=== PATIENT | male | born 1940 | race Asian ===

== ENCOUNTER 2021-06-01 13:32 | Inpatient (IN) | payer OTHER ==
[2021-06-01 15:30] LABS: BASO % 0.2 % (0-2.0); EOS % 0.6 % (0-4.5); HEMATOCRIT 39.3 % (35.4-49); HEMOGLOBIN 13.2 GM/dL (11.7-16.9); LYMPH % 23.6 % (8-40); MCH 29.5 pg (25.7-33.7); MCHC 33.7 g/dl (32.0-35.9); MEAN CELL VOLUME 87.7 fl (80-96); MEAN PLT VOLUME 8.8 fl (7.5-11.1); MONO % 9.3 % (3.8-10.2); NEUT % 66.3 % (42.8-82.8); PLATELET COUNT 148 10^3/uL (134-434); RBC 4.48 M/mm3 (4.00-5.60); RDW 16.3 % (11.9-15.9); WHITE BLOOD COUNT 6.2 K/mm3 (4.0-10.0)
[2021-06-01 15:45] LABS: INR 1.34 (0.83-1.09); PROTHROMBIN TIME (PATIENT) 15.7 SEC (9.7-13.0)
[2021-06-01 15:48] LABS: ACTIVATED PTT 33.8 SECONDS (25.2-36.5)
[2021-06-01 15:53] LABS: ALBUMIN 2.9 g/dl (3.4-5.0); BLOOD UREA NITROGEN 35.8 mg/dL (7-18); CALCIUM 8.1 mg/dL (8.5-10.1)
[2021-06-01 15:56] LABS: CREATININE 1.8 mg/dL (0.55-1.3)
[2021-06-01 15:58] LABS: BILIRUBIN,TOTAL 0.4 mg/dL (0.2-1); TOT PROT 7.9 g/dl (6.4-8.2)
[2021-06-01] MEDS ORDERED: ACETAMINOPHEN 1000 MG/100 ML VIAL IVPB ONE (16:10)
[2021-06-01] MEDS ORDERED: ACETAMINOPHEN INJECTION 100 ML IVPB ONE (16:18)
[2021-06-01] MEDS ORDERED: SODIUM CHLORIDE 0.9% 500 ML INFUS.BAG IV ONE (16:46)
[2021-06-01] MEDS ORDERED: LIDOCAINE 5% TOPICAL PATCH TP ONE (19:23)
[2021-06-01] MEDS ORDERED: LIDOCAINE 5% TOPICAL PATCH ONE (20:41)
[2021-06-01] MEDS ORDERED: hydrALAZINE HCL 25 MG TABLET (FP) ONE (23:46)
[2021-06-01] MEDS ORDERED: APIXABAN 5 MG TABLET ONE (23:46)
[2021-06-01] MEDS ORDERED: CARVEDILOL 12.5 MG TABLET (FP) ONE (23:46)
[2021-06-01] MEDS ORDERED: ATORVASTATIN CA 40 MG TABLET (FP) ONE (23:46)
[2021-06-01] MEDS: ATORVASTATIN CA 40 MG TABLET (FP) PO SCH (23:53)
[2021-06-01] MEDS: hydrALAZINE HCL 50 MG TABLET (FP) PO SCH (23:53)
[2021-06-01] MEDS: CARVEDILOL 12.5 MG TABLET (FP) PO SCH (23:53)
[2021-06-01] MEDS: APIXABAN 5 MG TABLET PO SCH (23:53)
[2021-06-02 06:12] LABS: BASO % 0.5 % (0-2.0); EOS % 0.9 % (0-4.5); HEMATOCRIT 38.6 % (35.4-49); LYMPH % 24.1 % (8-40); MCH 29.9 pg (25.7-33.7); MCHC 33.6 g/dl (32.0-35.9); MEAN CELL VOLUME 89.2 fl (80-96); MEAN PLT VOLUME 8.9 fl (7.5-11.1); MONO % 10.7 % (3.8-10.2); NEUT % 63.8 % (42.8-82.8); PLATELET COUNT 142 10^3/uL (134-434); RBC 4.33 M/mm3 (4.00-5.60); RDW 16.3 % (11.9-15.9); WHITE BLOOD COUNT 6.7 K/mm3 (4.0-10.0)
[2021-06-02 06:15] LABS: ALBUMIN 2.7 g/dl (3.4-5.0); BLOOD UREA NITROGEN 37.4 mg/dL (7-18); CALCIUM 8.5 mg/dL (8.5-10.1); MAGNESIUM 2.3 mg/dL (1.8-2.4)
[2021-06-02 06:18] LABS: CREATININE 1.7 mg/dL (0.55-1.3)
[2021-06-02 06:20] LABS: BILIRUBIN,TOTAL 0.4 mg/dL (0.2-1); TOT PROT 7.6 g/dl (6.4-8.2)
[2021-06-02] MEDS: INSULIN SLIDING SCALE (NOVOLOG) 1 VIAL SQ SCH ×4 (08:13→22:00)
[2021-06-02] MEDS: LEVOTHYROXINE NA 50 MCG TABLET (FP) PO SCH (08:14)
[2021-06-02] MEDS: APIXABAN 5 MG TABLET PO SCH ×2 (10:29→21:51)
[2021-06-02] MEDS: hydrALAZINE HCL 50 MG TABLET (FP) PO SCH ×2 (10:29→22:00)
[2021-06-02] MEDS: CARVEDILOL 12.5 MG TABLET (FP) PO SCH ×2 (10:29→21:52)
[2021-06-02] MEDS: ISOSORBIDE MONONITRATE 30 MG TAB.SR.24H (FP) PO SCH (10:29)
[2021-06-02] MEDS: ASPIRIN 81 MG CHEWABLE TABLETS PO SCH (10:29)
[2021-06-02] MEDS: ALLOPURINOL 100 MG TABLET (FP) PO SCH (10:29)
[2021-06-02] MEDS: SACUBITRIL/VALSARTAN 24 MG-26 MG TABLET PO SCH ×2 (10:30→21:50)
[2021-06-02] MEDS ORDERED: FLU VACC QS2021-22(6MOS UP)/PF 60 MCG/0.5 ML SYRINGE IM ONE (14:00)
[2021-06-02] MEDS ORDERED: PT OWN MED DRAWER 7, Y5N ONE (19:48)
[2021-06-02] MEDS: ATORVASTATIN CA 40 MG TABLET (FP) PO SCH (21:53)
[2021-06-03] MEDS: LIDOCAINE PATCH REMOVAL MC SCH ×2 (06:23→22:05)
[2021-06-03] MEDS: LEVOTHYROXINE NA 50 MCG TABLET (FP) PO SCH (06:25)
[2021-06-03] MEDS: INSULIN SLIDING SCALE (NOVOLOG) 1 VIAL SQ SCH ×4 (06:41→22:05)
[2021-06-03] MEDS: ALLOPURINOL 100 MG TABLET (FP) PO SCH (09:13)
[2021-06-03] MEDS: APIXABAN 5 MG TABLET PO SCH ×2 (09:13→22:04)
[2021-06-03] MEDS: ASPIRIN 81 MG CHEWABLE TABLETS PO SCH (09:13)
[2021-06-03] MEDS: hydrALAZINE HCL 50 MG TABLET (FP) PO SCH ×2 (09:13→22:04)
[2021-06-03] MEDS: SACUBITRIL/VALSARTAN 24 MG-26 MG TABLET PO SCH ×2 (09:13→22:04)
[2021-06-03] MEDS: CARVEDILOL 12.5 MG TABLET (FP) PO SCH ×2 (09:13→22:04)
[2021-06-03] MEDS: ISOSORBIDE MONONITRATE 30 MG TAB.SR.24H (FP) PO SCH (09:15)
[2021-06-03] MEDS ORDERED: PT OWN MED DRAWER 7, Y5N ONE (22:02)
[2021-06-03] MEDS: ATORVASTATIN CA 40 MG TABLET (FP) PO SCH (22:04)
[2021-06-04] MEDS: INSULIN SLIDING SCALE (NOVOLOG) 1 VIAL SQ SCH ×4 (06:01→21:48)
[2021-06-04] MEDS: LEVOTHYROXINE NA 50 MCG TABLET (FP) PO SCH (06:11)
[2021-06-04 08:32] LABS: BASO % 0.1 % (0-2.0); EOS % 0.6 % (0-4.5); HEMATOCRIT 35.5 % (35.4-49); HEMOGLOBIN 12.3 GM/dL (11.7-16.9); LYMPH % 15.8 % (8-40); MCH 30.1 pg (25.7-33.7); MCHC 34.5 g/dl (32.0-35.9); MEAN CELL VOLUME 87.1 fl (80-96); MONO % 11.9 % (3.8-10.2); NEUT % 71.6 % (42.8-82.8); PLATELET COUNT 117 10^3/uL (134-434); RBC 4.08 M/mm3 (4.00-5.60); RDW 16.3 % (11.9-15.9); WHITE BLOOD COUNT 7.2 K/mm3 (4.0-10.0)
[2021-06-04 08:43] LABS: CALCIUM 8.1 mg/dL (8.5-10.1)
[2021-06-04 08:44] LABS: BLOOD UREA NITROGEN 41.2 mg/dL (7-18)
[2021-06-04 08:45] LABS: ALBUMIN 2.6 g/dl (3.4-5.0)
[2021-06-04 08:47] LABS: CREATININE 1.5 mg/dL (0.55-1.3)
[2021-06-04 08:49] LABS: BILIRUBIN,TOTAL 0.7 mg/dL (0.2-1); TOT PROT 7.4 g/dl (6.4-8.2)
[2021-06-04] MEDS ORDERED: PT OWN MED DRAWER 7, Y5N ONE ×2 (09:39→21:18)
[2021-06-04 09:46] LABS: URINE APPEARANCE CLEAR; URINE COLOR YELLOW
[2021-06-04 09:47] LABS: PH,URINE 5.5 (5.0-8.0); URINE BILIRUBIN NEGATIVE (NEGATIVE); URINE GLUCOSE (UA) >1000 mg/dl (NEGATIVE); URINE KETONE NEGATIVE (NEGATIVE); URINE PROTEIN 2+ (NEGATIVE)
[2021-06-04 09:48] LABS: URINE LEUK ESTERASE NEGATIVE (NEGATIVE); URINE NITRITE NEGATIVE (NEGATIVE); URINE UROBILINOGEN 0.2 mg/dL (0.2-1.0)
[2021-06-04] MEDS: CARVEDILOL 12.5 MG TABLET (FP) PO SCH ×2 (10:18→21:47)
[2021-06-04] MEDS: ASPIRIN 81 MG CHEWABLE TABLETS PO SCH (10:18)
[2021-06-04] MEDS: hydrALAZINE HCL 50 MG TABLET (FP) PO SCH ×2 (10:18→21:47)
[2021-06-04] MEDS: SACUBITRIL/VALSARTAN 24 MG-26 MG TABLET PO SCH ×2 (10:19→21:47)
[2021-06-04] MEDS: APIXABAN 5 MG TABLET PO SCH ×2 (10:19→21:47)
[2021-06-04] MEDS: ISOSORBIDE MONONITRATE 30 MG TAB.SR.24H (FP) PO SCH (10:19)
[2021-06-04] MEDS: ALLOPURINOL 100 MG TABLET (FP) PO SCH (10:20)
[2021-06-04] MEDS: LIDOCAINE 5% TOPICAL PATCH TP SCH (14:33)
[2021-06-04] MEDS: LIDOCAINE PATCH REMOVAL MC SCH (21:47)
[2021-06-04] MEDS: ATORVASTATIN CA 40 MG TABLET (FP) PO SCH (21:47)
[2021-06-05] MEDS: LEVOTHYROXINE NA 50 MCG TABLET (FP) PO SCH (06:20)
[2021-06-05] MEDS: INSULIN SLIDING SCALE (NOVOLOG) 1 VIAL SQ SCH ×4 (06:21→22:29)
[2021-06-05 07:53] LABS: BASO % 0.1 % (0-2.0); EOS % 0.6 % (0-4.5); HEMATOCRIT 36.1 % (35.4-49); HEMOGLOBIN 12.3 GM/dL (11.7-16.9); LYMPH % 19.3 % (8-40); MCH 30.5 pg (25.7-33.7); MCHC 34.2 g/dl (32.0-35.9); MEAN CELL VOLUME 89.1 fl (80-96); MEAN PLT VOLUME 9.5 fl (7.5-11.1); MONO % 16.3 % (3.8-10.2); NEUT % 63.7 % (42.8-82.8); PLATELET COUNT 120 10^3/uL (134-434); RBC 4.04 M/mm3 (4.00-5.60); RDW 16.1 % (11.9-15.9)
[2021-06-05 08:22] LABS: ALBUMIN 2.8 g/dl (3.4-5.0); BLOOD UREA NITROGEN 39.9 mg/dL (7-18); CALCIUM 8.4 mg/dL (8.5-10.1)
[2021-06-05 08:24] LABS: CREATININE 1.5 mg/dL (0.55-1.3)
[2021-06-05 08:25] LABS: TOT PROT 7.8 g/dl (6.4-8.2)
[2021-06-05] MEDS: ALLOPURINOL 100 MG TABLET (FP) PO SCH (09:24)
[2021-06-05] MEDS: LIDOCAINE 5% TOPICAL PATCH TP SCH (09:24)
[2021-06-05] MEDS: ASPIRIN 81 MG CHEWABLE TABLETS PO SCH (09:25)
[2021-06-05] MEDS: CARVEDILOL 12.5 MG TABLET (FP) PO SCH ×2 (09:25→22:28)
[2021-06-05] MEDS: SACUBITRIL/VALSARTAN 24 MG-26 MG TABLET PO SCH ×2 (09:25→22:27)
[2021-06-05] MEDS: hydrALAZINE HCL 50 MG TABLET (FP) PO SCH ×2 (09:25→22:27)
[2021-06-05] MEDS: APIXABAN 5 MG TABLET PO SCH ×2 (09:25→22:28)
[2021-06-05] MEDS: ISOSORBIDE MONONITRATE 30 MG TAB.SR.24H (FP) PO SCH (09:26)
[2021-06-05] MEDS: AMIODARONE HCL 200 MG TABLET PO SCH (12:11)
[2021-06-05] MEDS: FUROSEMIDE 40 MG/4 ML INJECTABLE VIAL IVPUSH SCH (14:21)
[2021-06-05] MEDS ORDERED: ACETAMINOPHEN 325 MG TABLET (FP) PO PRN (15:14)
[2021-06-05] MEDS: ACETAMINOPHEN 325 MG TABLET (FP) PO PRN (15:23)
[2021-06-05] MEDS ORDERED: PT OWN MED DRAWER 7, Y5N ONE (21:22)
[2021-06-05] MEDS ORDERED: POLYETHYLENE GLYCOL (HEALTHYLAX) 3350 17 GM PACKET PO PRN (21:42)
[2021-06-05] MEDS: DOCUSATE SODIUM 100 MG CAPSULE (FP) PO SCH (22:26)
[2021-06-05] MEDS: ATORVASTATIN CA 40 MG TABLET (FP) PO SCH (22:28)
[2021-06-05] MEDS: LIDOCAINE PATCH REMOVAL MC SCH (23:36)
[2021-06-06] MEDS: LEVOTHYROXINE NA 50 MCG TABLET (FP) PO SCH (06:56)
[2021-06-06] MEDS: INSULIN SLIDING SCALE (NOVOLOG) 1 VIAL SQ SCH ×4 (06:56→21:42)
[2021-06-06] MEDS: FUROSEMIDE 40 MG/4 ML INJECTABLE VIAL IVPUSH SCH ×2 (07:38→13:31)
[2021-06-06 08:25] LABS: CALCIUM 8.8 mg/dL (8.5-10.1)
[2021-06-06 08:26] LABS: ALBUMIN 2.6 g/dl (3.4-5.0); BLOOD UREA NITROGEN 44.6 mg/dL (7-18)
[2021-06-06 08:29] LABS: CREATININE 1.6 mg/dL (0.55-1.3)
[2021-06-06 08:30] LABS: BILIRUBIN,TOTAL 2.4 mg/dL (0.2-1)
[2021-06-06 08:31] LABS: TOT PROT 7.6 g/dl (6.4-8.2)
[2021-06-06] MEDS ORDERED: PT OWN MED DRAWER 7, Y5N ONE ×3 (09:01→20:07)
[2021-06-06] MEDS: ALLOPURINOL 100 MG TABLET (FP) PO SCH (09:14)
[2021-06-06] MEDS: DOCUSATE SODIUM 100 MG CAPSULE (FP) PO SCH ×2 (09:14→21:36)
[2021-06-06] MEDS: ISOSORBIDE MONONITRATE 30 MG TAB.SR.24H (FP) PO SCH (09:14)
[2021-06-06] MEDS: hydrALAZINE HCL 50 MG TABLET (FP) PO SCH ×2 (09:14→21:36)
[2021-06-06] MEDS: ASPIRIN 81 MG CHEWABLE TABLETS PO SCH (09:14)
[2021-06-06] MEDS: SACUBITRIL/VALSARTAN 24 MG-26 MG TABLET PO SCH ×2 (09:15→21:36)
[2021-06-06] MEDS: APIXABAN 5 MG TABLET PO SCH ×2 (09:15→21:36)
[2021-06-06] MEDS: AMIODARONE HCL 200 MG TABLET PO SCH (09:15)
[2021-06-06] MEDS: CARVEDILOL 12.5 MG TABLET (FP) PO SCH ×2 (09:15→21:36)
[2021-06-06] MEDS: LIDOCAINE 5% TOPICAL PATCH TP SCH (09:16)
[2021-06-06] MEDS ORDERED: METOLAZONE 5 MG TABLET PO SCH (13:30)
[2021-06-06] MEDS: ATORVASTATIN CA 40 MG TABLET (FP) PO SCH (21:36)
[2021-06-06] MEDS: LIDOCAINE PATCH REMOVAL MC SCH (21:37)
[2021-06-07] MEDS: FUROSEMIDE 40 MG/4 ML INJECTABLE VIAL IVPUSH SCH ×2 (06:32→14:51)
[2021-06-07] MEDS: INSULIN SLIDING SCALE (NOVOLOG) 1 VIAL SQ SCH ×4 (06:33→21:26)
[2021-06-07] MEDS: LEVOTHYROXINE NA 50 MCG TABLET (FP) PO SCH (06:34)
[2021-06-07 09:42] LABS: CALCIUM 8.8 mg/dL (8.5-10.1)
[2021-06-07 09:43] LABS: BLOOD UREA NITROGEN 54.6 mg/dL (7-18)
[2021-06-07 09:46] LABS: CREATININE 1.8 mg/dL (0.55-1.3)
[2021-06-07] MEDS: hydrALAZINE HCL 50 MG TABLET (FP) PO SCH ×2 (10:52→21:23)
[2021-06-07] MEDS: AMIODARONE HCL 200 MG TABLET PO SCH (10:52)
[2021-06-07] MEDS: DOCUSATE SODIUM 100 MG CAPSULE (FP) PO SCH ×2 (10:52→21:23)
[2021-06-07] MEDS: SACUBITRIL/VALSARTAN 24 MG-26 MG TABLET PO SCH ×2 (10:52→21:23)
[2021-06-07] MEDS: APIXABAN 5 MG TABLET PO SCH ×2 (10:52→21:23)
[2021-06-07] MEDS: ISOSORBIDE MONONITRATE 30 MG TAB.SR.24H (FP) PO SCH (10:52)
[2021-06-07] MEDS: CARVEDILOL 12.5 MG TABLET (FP) PO SCH ×2 (10:52→21:23)
[2021-06-07] MEDS: ALLOPURINOL 100 MG TABLET (FP) PO SCH (10:53)
[2021-06-07] MEDS: ASPIRIN 81 MG CHEWABLE TABLETS PO SCH (10:53)
[2021-06-07] MEDS: LIDOCAINE 5% TOPICAL PATCH TP SCH (10:58)
[2021-06-07] MEDS: ACETAMINOPHEN 325 MG TABLET (FP) PO PRN (15:51)
[2021-06-07] MEDS ORDERED: PT OWN MED DRAWER 7, Y5N ONE (20:01)
[2021-06-07] MEDS: ATORVASTATIN CA 40 MG TABLET (FP) PO SCH (21:23)
[2021-06-07] MEDS: LIDOCAINE PATCH REMOVAL MC SCH (21:30)
[2021-06-08] MEDS: FUROSEMIDE 40 MG/4 ML INJECTABLE VIAL IVPUSH SCH (06:31)
[2021-06-08] MEDS: LEVOTHYROXINE NA 50 MCG TABLET (FP) PO SCH (06:32)
[2021-06-08] MEDS: INSULIN SLIDING SCALE (NOVOLOG) 1 VIAL SQ SCH ×4 (06:32→23:08)
[2021-06-08 08:06] LABS: CALCIUM 8.8 mg/dL (8.5-10.1)
[2021-06-08 08:07] LABS: ALBUMIN 2.7 g/dl (3.4-5.0); BLOOD UREA NITROGEN 58.5 mg/dL (7-18)
[2021-06-08 08:10] LABS: CREATININE 1.8 mg/dL (0.55-1.3)
[2021-06-08 08:12] LABS: TOT PROT 7.6 g/dl (6.4-8.2)
[2021-06-08] MEDS ORDERED: PT OWN MED DRAWER 7, Y5N ONE (09:05)
[2021-06-08] MEDS: LIDOCAINE 5% TOPICAL PATCH TP SCH (09:46)
[2021-06-08] MEDS: ACETAMINOPHEN 325 MG TABLET (FP) PO PRN (09:49)
[2021-06-08] MEDS: ASPIRIN 81 MG CHEWABLE TABLETS PO SCH (09:51)
[2021-06-08] MEDS: APIXABAN 5 MG TABLET PO SCH ×2 (09:51→22:25)
[2021-06-08] MEDS: ALLOPURINOL 100 MG TABLET (FP) PO SCH (09:52)
[2021-06-08] MEDS: ISOSORBIDE MONONITRATE 30 MG TAB.SR.24H (FP) PO SCH (09:52)
[2021-06-08] MEDS: CARVEDILOL 12.5 MG TABLET (FP) PO SCH ×2 (09:54→22:24)
[2021-06-08] MEDS: AMIODARONE HCL 200 MG TABLET PO SCH (09:54)
[2021-06-08] MEDS: hydrALAZINE HCL 50 MG TABLET (FP) PO SCH ×2 (09:55→22:24)
[2021-06-08] MEDS: DOCUSATE SODIUM 100 MG CAPSULE (FP) PO SCH ×2 (09:55→22:24)
[2021-06-08] MEDS: SACUBITRIL/VALSARTAN 24 MG-26 MG TABLET PO SCH ×2 (09:58→22:52)
[2021-06-08] MEDS ORDERED: FUROSEMIDE INJECTION 100 MG in DEXTROSE 5%-WATER - 40 ML IVPB SCH (10:45)
[2021-06-08] MEDS ORDERED: INSULIN (NOVOLOG) ASPART 100 UNITS/ML 10ML VIAL ONE (11:06)
[2021-06-08] MEDS: FUROSEMIDE INJECTION 100 MG in DEXTROSE 5%-WATER - 40 ML IVPB SCH (12:30)
[2021-06-08] MEDS: LIDOCAINE PATCH REMOVAL MC SCH (22:26)
[2021-06-08] MEDS: ATORVASTATIN CA 40 MG TABLET (FP) PO SCH (22:52)
[2021-06-09] MEDS: INSULIN SLIDING SCALE (NOVOLOG) 1 VIAL SQ SCH ×4 (06:14→23:18)
[2021-06-09] MEDS: LEVOTHYROXINE NA 50 MCG TABLET (FP) PO SCH (06:15)
[2021-06-09] MEDS ORDERED: PT OWN MED DRAWER 7, Y5N ONE ×2 (10:24→20:44)
[2021-06-09] MEDS ORDERED: METOLAZONE 5 MG TABLET PO ONE (10:45)
[2021-06-09] MEDS: ISOSORBIDE MONONITRATE 30 MG TAB.SR.24H (FP) PO SCH (10:49)
[2021-06-09] MEDS: APIXABAN 5 MG TABLET PO SCH ×2 (10:49→22:20)
[2021-06-09] MEDS: SACUBITRIL/VALSARTAN 24 MG-26 MG TABLET PO SCH ×2 (10:49→22:20)
[2021-06-09] MEDS: AMIODARONE HCL 200 MG TABLET PO SCH (10:49)
[2021-06-09] MEDS: CARVEDILOL 12.5 MG TABLET (FP) PO SCH ×2 (10:49→22:17)
[2021-06-09] MEDS: LIDOCAINE 5% TOPICAL PATCH TP SCH (10:49)
[2021-06-09] MEDS: hydrALAZINE HCL 50 MG TABLET (FP) PO SCH ×2 (10:49→22:19)
[2021-06-09] MEDS: DOCUSATE SODIUM 100 MG CAPSULE (FP) PO SCH ×2 (10:49→22:20)
[2021-06-09] MEDS: ASPIRIN 81 MG CHEWABLE TABLETS PO SCH (10:49)
[2021-06-09] MEDS: ALLOPURINOL 100 MG TABLET (FP) PO SCH (10:52)
[2021-06-09] MEDS: FUROSEMIDE INJECTION 100 MG in DEXTROSE 5%-WATER - 40 ML IVPB SCH (11:27)
[2021-06-09 12:37] LABS: CALCIUM 8.8 mg/dL (8.5-10.1)
[2021-06-09 12:41] LABS: CREATININE 1.7 mg/dL (0.55-1.3)
[2021-06-09] MEDS: LIDOCAINE PATCH REMOVAL MC SCH (22:21)
[2021-06-09] MEDS: ATORVASTATIN CA 40 MG TABLET (FP) PO SCH (22:22)
[2021-06-10] MEDS: LEVOTHYROXINE NA 50 MCG TABLET (FP) PO SCH (06:03)
[2021-06-10] MEDS: INSULIN SLIDING SCALE (NOVOLOG) 1 VIAL SQ SCH ×3 (06:05→17:36)
[2021-06-10 08:30] LABS: HEMOGLOBIN 10.8 GM/dL (11.7-16.9); MCH 30.1 pg (25.7-33.7); MCHC 33.8 g/dl (32.0-35.9); MEAN PLT VOLUME 9.2 fl (7.5-11.1); PLATELET COUNT 129 10^3/uL (134-434); WHITE BLOOD COUNT 4.7 K/mm3 (4.0-10.0)
[2021-06-10] MEDS ORDERED: PT OWN MED DRAWER 7, Y5N ONE (08:55)
[2021-06-10 08:59] LABS: ALBUMIN 2.3 g/dl (3.4-5.0)
[2021-06-10 09:00] LABS: BLOOD UREA NITROGEN 66.1 mg/dL (7-18)
[2021-06-10 09:04] LABS: BILIRUBIN,TOTAL 0.8 mg/dL (0.2-1); TOT PROT 7.3 g/dl (6.4-8.2)
[2021-06-10] MEDS: ASPIRIN 81 MG CHEWABLE TABLETS PO SCH (09:04)
[2021-06-10] MEDS: ALLOPURINOL 100 MG TABLET (FP) PO SCH (09:04)
[2021-06-10] MEDS: SACUBITRIL/VALSARTAN 24 MG-26 MG TABLET PO SCH ×2 (09:04→21:43)
[2021-06-10] MEDS: ISOSORBIDE MONONITRATE 30 MG TAB.SR.24H (FP) PO SCH (09:05)
[2021-06-10] MEDS: AMIODARONE HCL 200 MG TABLET PO SCH (09:05)
[2021-06-10] MEDS: APIXABAN 5 MG TABLET PO SCH ×2 (09:05→21:44)
[2021-06-10] MEDS: hydrALAZINE HCL 50 MG TABLET (FP) PO SCH ×2 (09:05→21:44)
[2021-06-10] MEDS: DOCUSATE SODIUM 100 MG CAPSULE (FP) PO SCH ×2 (09:05→21:44)
[2021-06-10] MEDS: LIDOCAINE 5% TOPICAL PATCH TP SCH (09:05)
[2021-06-10] MEDS: CARVEDILOL 12.5 MG TABLET (FP) PO SCH ×2 (09:05→21:43)
[2021-06-10] MEDS: FUROSEMIDE INJECTION 100 MG in DEXTROSE 5%-WATER - 40 ML IVPB SCH (12:04)
[2021-06-10] MEDS: LIDOCAINE PATCH REMOVAL MC SCH (22:00)
[2021-06-10] MEDS: ATORVASTATIN CA 40 MG TABLET (FP) PO SCH (23:00)
[2021-06-11] MEDS: INSULIN SLIDING SCALE (NOVOLOG) 1 VIAL SQ SCH ×5 (05:52→21:37)
[2021-06-11] MEDS: LEVOTHYROXINE NA 50 MCG TABLET (FP) PO SCH (06:05)
[2021-06-11 08:22] LABS: BLOOD UREA NITROGEN 73.3 mg/dL (7-18); CALCIUM 8.9 mg/dL (8.5-10.1)
[2021-06-11 08:26] LABS: CREATININE 2.2 mg/dL (0.55-1.3)
[2021-06-11] MEDS ORDERED: PT OWN MED DRAWER 7, Y5N ONE ×2 (09:27→21:21)
[2021-06-11] MEDS: SACUBITRIL/VALSARTAN 24 MG-26 MG TABLET PO SCH ×2 (10:21→21:30)
[2021-06-11] MEDS: ASPIRIN 81 MG CHEWABLE TABLETS PO SCH (10:21)
[2021-06-11] MEDS: LIDOCAINE 5% TOPICAL PATCH TP SCH (10:21)
[2021-06-11] MEDS: DOCUSATE SODIUM 100 MG CAPSULE (FP) PO SCH ×2 (10:22→21:30)
[2021-06-11] MEDS: hydrALAZINE HCL 50 MG TABLET (FP) PO SCH ×2 (10:22→21:30)
[2021-06-11] MEDS: CARVEDILOL 12.5 MG TABLET (FP) PO SCH ×2 (10:22→21:30)
[2021-06-11] MEDS: ISOSORBIDE MONONITRATE 30 MG TAB.SR.24H (FP) PO SCH (10:22)
[2021-06-11] MEDS: AMIODARONE HCL 200 MG TABLET PO SCH (10:22)
[2021-06-11] MEDS: INSULIN (LEVEMIR) 100 UNITS/ML UNITS SQ SCH ×2 (10:23→21:38)
[2021-06-11] MEDS: FUROSEMIDE INJECTION 100 MG in DEXTROSE 5%-WATER - 40 ML IVPB SCH ×2 (10:24→21:51)
[2021-06-11] MEDS: ALLOPURINOL 100 MG TABLET (FP) PO SCH (12:02)
[2021-06-11] MEDS ORDERED: INSULIN (NOVOLOG) ASPART 100 UNITS/ML 10ML VIAL ONE (21:20)
[2021-06-11] MEDS: ATORVASTATIN CA 40 MG TABLET (FP) PO SCH (21:30)
[2021-06-11] MEDS: ACETAMINOPHEN 325 MG TABLET (FP) PO PRN (21:34)
[2021-06-11] MEDS: LIDOCAINE PATCH REMOVAL MC SCH (21:38)
[2021-06-12] MEDS: INSULIN SLIDING SCALE (NOVOLOG) 1 VIAL SQ SCH ×4 (06:24→21:20)
[2021-06-12] MEDS: LEVOTHYROXINE NA 50 MCG TABLET (FP) PO SCH (06:24)
[2021-06-12 08:59] LABS: BLOOD UREA NITROGEN 77.4 mg/dL (7-18); CALCIUM 8.7 mg/dL (8.5-10.1)
[2021-06-12 09:02] LABS: CREATININE 1.9 mg/dL (0.55-1.3)
[2021-06-12] MEDS ORDERED: PT OWN MED DRAWER 7, Y5N ONE ×2 (09:39→12:40)
[2021-06-12] MEDS: FUROSEMIDE INJECTION 100 MG in DEXTROSE 5%-WATER - 40 ML IVPB SCH (11:08)
[2021-06-12] MEDS: SACUBITRIL/VALSARTAN 24 MG-26 MG TABLET PO SCH ×2 (11:12→21:16)
[2021-06-12] MEDS: ALLOPURINOL 100 MG TABLET (FP) PO SCH (11:13)
[2021-06-12] MEDS: ISOSORBIDE MONONITRATE 30 MG TAB.SR.24H (FP) PO SCH (11:13)
[2021-06-12] MEDS: AMIODARONE HCL 200 MG TABLET PO SCH (11:13)
[2021-06-12] MEDS: CARVEDILOL 12.5 MG TABLET (FP) PO SCH ×2 (11:13→21:16)
[2021-06-12] MEDS: ASPIRIN 81 MG CHEWABLE TABLETS PO SCH ×2 (11:13→11:40)
[2021-06-12] MEDS: DOCUSATE SODIUM 100 MG CAPSULE (FP) PO SCH ×2 (11:13→21:16)
[2021-06-12] MEDS: hydrALAZINE HCL 50 MG TABLET (FP) PO SCH ×2 (11:14→21:16)
[2021-06-12] MEDS: INSULIN (LEVEMIR) 100 UNITS/ML UNITS SQ SCH ×2 (11:19→21:20)
[2021-06-12] MEDS: LIDOCAINE 5% TOPICAL PATCH TP SCH (11:19)
[2021-06-12] MEDS ORDERED: METOLAZONE 5 MG TABLET PO ONE (12:05)
[2021-06-12] MEDS ORDERED: POTASSIUM CHLORIDE TABS 20 MEQ TABLET.ER (FP) PO ONE (12:05)
[2021-06-12] MEDS: ATORVASTATIN CA 40 MG TABLET (FP) PO SCH (21:16)
[2021-06-12] MEDS: LIDOCAINE PATCH REMOVAL MC SCH (21:20)
[2021-06-13] MEDS: FUROSEMIDE INJECTION 100 MG in DEXTROSE 5%-WATER - 40 ML IVPB SCH ×2 (04:50→15:10)
[2021-06-13] MEDS: LEVOTHYROXINE NA 50 MCG TABLET (FP) PO SCH (06:09)
[2021-06-13] MEDS: INSULIN SLIDING SCALE (NOVOLOG) 1 VIAL SQ SCH ×4 (06:09→22:34)
[2021-06-13 07:29] LABS: CALCIUM 9.1 mg/dL (8.5-10.1)
[2021-06-13 07:30] LABS: BLOOD UREA NITROGEN 80.9 mg/dL (7-18)
[2021-06-13 07:33] LABS: CREATININE 2.3 mg/dL (0.55-1.3)
[2021-06-13] MEDS: DOCUSATE SODIUM 100 MG CAPSULE (FP) PO SCH ×2 (10:00→22:29)
[2021-06-13] MEDS: hydrALAZINE HCL 50 MG TABLET (FP) PO SCH ×2 (10:00→22:42)
[2021-06-13] MEDS: AMIODARONE HCL 200 MG TABLET PO SCH (10:00)
[2021-06-13] MEDS: CARVEDILOL 12.5 MG TABLET (FP) PO SCH ×2 (10:00→22:29)
[2021-06-13] MEDS: ASPIRIN 81 MG CHEWABLE TABLETS PO SCH (10:00)
[2021-06-13] MEDS: ISOSORBIDE MONONITRATE 30 MG TAB.SR.24H (FP) PO SCH (10:01)
[2021-06-13] MEDS: ALLOPURINOL 100 MG TABLET (FP) PO SCH (10:01)
[2021-06-13] MEDS: ACETAMINOPHEN 325 MG TABLET (FP) PO PRN ×2 (10:02→14:46)
[2021-06-13] MEDS: LIDOCAINE 5% TOPICAL PATCH TP SCH (10:04)
[2021-06-13] MEDS: INSULIN (LEVEMIR) 100 UNITS/ML UNITS SQ SCH ×3 (10:05→22:42)
[2021-06-13] MEDS ORDERED: PT OWN MED DRAWER 7, Y5N ONE ×2 (10:05→15:01)
[2021-06-13] MEDS: SACUBITRIL/VALSARTAN 24 MG-26 MG TABLET PO SCH ×2 (10:06→22:42)
[2021-06-13 16:30] LABS: BF WBC & OTHER NUCLEATED CELLS 451 /mm3
[2021-06-13] MEDS ORDERED: SODIUM CHLORIDE 500 ML IV STA (16:31)
[2021-06-13 16:42] LABS: BODY FLUID MACROPHAGES 6 %; BODY FLUID MONOCYTE 13 %
[2021-06-13 19:57] LABS: BASO % 0.1 % (0-2.0); HEMATOCRIT 30.3 % (35.4-49); HEMOGLOBIN 10.1 GM/dL (11.7-16.9); LYMPH % 3.4 % (8-40); MCH 29.5 pg (25.7-33.7); MCHC 33.3 g/dl (32.0-35.9); MEAN CELL VOLUME 88.5 fl (80-96); MEAN PLT VOLUME 8.7 fl (7.5-11.1); MONO % 5.2 % (3.8-10.2); NEUT % 91.3 % (42.8-82.8); PLATELET COUNT 124 10^3/uL (134-434); RBC 3.42 M/mm3 (4.00-5.60); WHITE BLOOD COUNT 12.4 K/mm3 (4.0-10.0)
[2021-06-13 20:08] LABS: CALCIUM 8.5 mg/dL (8.5-10.1)
[2021-06-13 20:09] LABS: ALBUMIN 2.1 g/dl (3.4-5.0); BLOOD UREA NITROGEN 91.6 mg/dL (7-18)
[2021-06-13 20:12] LABS: CREATININE 3.1 mg/dL (0.55-1.3)
[2021-06-13 20:13] LABS: TOT PROT 6.9 g/dl (6.4-8.2)
[2021-06-13 20:23] LABS: ANISOCYTOSIS 1+; OVALOCYTE 1+; PLATELET ESTIMATE DECREASED
[2021-06-13] MEDS: APIXABAN 5 MG TABLET PO SCH (22:29)
[2021-06-13] MEDS: ATORVASTATIN CA 40 MG TABLET (FP) PO SCH (22:29)
[2021-06-13] MEDS: LIDOCAINE PATCH REMOVAL MC SCH (22:42)
[2021-06-14] MEDS ORDERED: NOREPINEPHRINE NS PREMIX 16,000 MCG/500 ML BAG IVPB ONE (02:35)
[2021-06-14] MEDS ORDERED: NOREPINEPHRINE BITARTRATE 16,000 MCG in SODIUM CHLORIDE 484 ML IV SCH (03:15)
[2021-06-14] MEDS: INSULIN (LEVEMIR) 100 UNITS/ML UNITS SQ SCH ×2 (06:42→21:20)
[2021-06-14] MEDS: INSULIN SLIDING SCALE (NOVOLOG) 1 VIAL SQ SCH ×4 (06:42→21:21)
[2021-06-14] MEDS: LEVOTHYROXINE NA 50 MCG TABLET (FP) PO SCH (06:43)
[2021-06-14 07:29] LABS: HEMATOCRIT 33.7 % (35.4-49); HEMOGLOBIN 11.4 GM/dL (11.7-16.9); MCH 29.7 pg (25.7-33.7); MCHC 33.9 g/dl (32.0-35.9); MEAN CELL VOLUME 87.7 fl (80-96); MEAN PLT VOLUME 8.7 fl (7.5-11.1); PLATELET COUNT 116 10^3/uL (134-434); RBC 3.84 M/mm3 (4.00-5.60); RDW 16.3 % (11.9-15.9); WHITE BLOOD COUNT 15.3 K/mm3 (4.0-10.0)
[2021-06-14 07:47] LABS: CHLORIDE 89 mmol/L (98-107); SODIUM 130 mmol/L (136-145)
[2021-06-14 07:49] LABS: ALBUMIN 2.3 g/dl (3.4-5.0); ANION GAP 13 MMOL/L (8-16); CALCIUM 8.6 mg/dL (8.5-10.1); CO2 28 mmol/L (21-32); GLUCOSE,RANDOM 245 mg/dL (74-106)
[2021-06-14 07:50] LABS: BLOOD UREA NITROGEN 94.5 mg/dL (7-18)
[2021-06-14 07:52] LABS: SGPT/ALT 32 U/L (13-61)
[2021-06-14 07:53] LABS: CREATININE 3.4 mg/dL (0.55-1.3); SGOT/AST 82 U/L (15-37)
[2021-06-14 07:54] LABS: BILIRUBIN,TOTAL 1.5 mg/dL (0.2-1); TOT PROT 7.5 g/dl (6.4-8.2)
[2021-06-14 07:55] LABS: ALK PHOS 119 U/L (45-117)
[2021-06-14 09:50] LABS: ANISOCYTOSIS 1+; MACROCYTOSIS 0; OVALOCYTE 1+; PLATELET ESTIMATE NORMAL
[2021-06-14] MEDS ORDERED: MUPIROCIN 2% TOPICAL OINTMENT FOR DECOLONIZATION NS SCH (10:00)
[2021-06-14 10:09] LABS: NEUT % 13.3 % (42.8-82.8)
[2021-06-14] MEDS: APIXABAN 5 MG TABLET PO SCH ×2 (10:47→21:16)
[2021-06-14] MEDS: ASPIRIN 81 MG CHEWABLE TABLETS PO SCH (10:47)
[2021-06-14] MEDS: ALLOPURINOL 100 MG TABLET (FP) PO SCH (10:47)
[2021-06-14] MEDS: LIDOCAINE 5% TOPICAL PATCH TP SCH (10:47)
[2021-06-14] MEDS: CARVEDILOL 12.5 MG TABLET (FP) PO SCH ×2 (10:47→21:17)
[2021-06-14] MEDS: AMIODARONE HCL 200 MG TABLET PO SCH (10:47)
[2021-06-14] MEDS: DOCUSATE SODIUM 100 MG CAPSULE (FP) PO SCH ×2 (10:47→21:17)
[2021-06-14] MEDS ORDERED: VANCOMYCIN/WATER BAGS 1,250 MG/250 ML BAG IVPB ONE (12:04)
[2021-06-14] MEDS ORDERED: CEFEPIME HCL 1 GM VIAL (RESTRICTED TO ID) ONE ×2 (14:18→21:27)
[2021-06-14] MEDS ORDERED: DEXTROSE 5%-WATER - 50 ML IVPB ONE ×2 (14:18→21:27)
[2021-06-14] MEDS: CEFEPIME 1 GM in DEXTROSE 5%-WATER - 1 GM/50 ML IVPB IVPB SCH ×2 (14:30→21:29)
[2021-06-14] MEDS ORDERED: NOREPINEPHRINE NS PREMIX 16,000 MCG/500 ML BAG IVPB SCH (15:45)
[2021-06-14 16:01] VITALS: BMI 32.5
[2021-06-14] MEDS: ATORVASTATIN CA 40 MG TABLET (FP) PO SCH (21:16)
[2021-06-14] MEDS: LIDOCAINE PATCH REMOVAL MC SCH (21:17)
[2021-06-14 21:50] VITALS: BP 105/54; PULSE 63; TEMP 99.8
[2021-06-14] MEDS ORDERED: CHLORHEXIDINE GLUCONATE 4% CLEANSER FOR DECOLONIZATION TP SCH (22:00)
== END 2021-06-14 22:02 | disposition short-term general hospital (02) | DRG 280 ==
LOC: JER 13:32 → JERBED 20:54 → J4W 06-02 09:12 → JICU 06-14 01:30
PROVIDERS: ADMIT Internal Medicine; ATTEND Family Medicine
PROC: 0W9B3ZZ Drainage of Left Pleural Cavity, Percutaneous Approach (ICD-10-PCS; 2021-06-13)
PROC: 05HN33Z Insertion of Infusion Device into Left Internal Jugular Vein, Percutaneous Approach (ICD-10-PCS; principal; 2021-06-14)
PROC: B544ZZA Ultrasonography of Left Jugular Veins, Guidance (ICD-10-PCS; 2021-06-14)
DX: I13.0 Hypertensive heart and chronic kidney disease with heart failure and stage 1 through stage 4 chronic kidney disease, or unspecified chronic kidney disease (principal); I50.23 Acute on chronic systolic (congestive) heart failure; I21.A1 Myocardial infarction type 2; R57.0 Cardiogenic shock; J98.11 Atelectasis; E87.1 Hypo-osmolality and hyponatremia; N17.9 Acute kidney failure, unspecified; J44.1 Chronic obstructive pulmonary disease with (acute) exacerbation; I95.9 Hypotension, unspecified; I25.5 Ischemic cardiomyopathy; M54.2 Cervicalgia; I48.0 Paroxysmal atrial fibrillation; E78.5 Hyperlipidemia, unspecified; D72.829 Elevated white blood cell count, unspecified; I27.20 Pulmonary hypertension, unspecified; I42.0 Dilated cardiomyopathy; M10.9 Gout, unspecified; R44.8 Other symptoms and signs involving general sensations and perceptions; N28.1 Cyst of kidney, acquired; I25.10 Atherosclerotic heart disease of native coronary artery without angina pectoris; E11.22 Type 2 diabetes mellitus with diabetic chronic kidney disease; E66.9 Obesity, unspecified; E11.42 Type 2 diabetes mellitus with diabetic polyneuropathy; Z68.32 Body mass index [BMI] 32.0-32.9, adult; N18.30 Chronic kidney disease, stage 3 unspecified; W18.39XA Other fall on same level, initial encounter; Y92.098 Other place in other non-institutional residence as the place of occurrence of the external cause; Z95.1 Presence of aortocoronary bypass graft; Z95.0 Presence of cardiac pacemaker
CPT/HCPCS: 32557; 36415; 70450-TC; 70498-TC; 71045-TC-FY; 71046-TC-FY; 71275-TC; 72125-TC; 73030-TC-RT-FY; 76775-TC; 80048; 80053; 80061; 81003; 82550; 82553; 82945; 82962; 83036; 83615; 83735; 83880; 83986; 84157; 84443; 84484; 85025; 85027; 85610; 85730; 86850; 86900; 86901; 87040; 87070; 87075; 87086; 87102; 87116; 87186; 87205; 87206; 87210; 88108; 88305-TC; 90686; 93005; 93010; 93306-TC; 93880-TC; 97116-GP; 97162-GP; 99285-25; C9803; G0008; J0131; J1250; Q9967; U0003; U0005